=== PATIENT | female | born 1940 | race Caucasian/White ===

== ENCOUNTER → 2017-02-03 | Outpatient (CLI) | payer MEDICARE ==
--- NOTE | 2017-02-03 11:33 | RAD ---
Indication assess for potential right breast abscess. Targeted ultrasound of the right breast was performed. There is slight swelling of the dermis and epidermis at approximately the 9 to 10:00 position of the breast.. A discrete fluid collection, suggesting abscess, is not seen. IMPRESSION: No evidence of deep-seated abscess
== END | disposition home or self-care (01) ==
LOC: US 10:40
PROVIDERS: ATTEND Surgery
DX: N61.1 Abscess of the breast and nipple (principal)
CPT/HCPCS: 76641

== ENCOUNTER 2017-03-28 16:38 | Emergency (ER) | payer MEDICARE, BC ==
[~2017-03-28] VITALS: Ht 165.1 cm; Wt 81.6 kg
[2017-03-28 18:12] LABS: BILIRUBIN,URINE SMALL (NEG); GLUCOSE,URINE 100 mg/dL (NEG); NITRITE,URINE POSITIVE (NEG); PROTEIN,URINE NEGATIVE (NEG-TRACE)
[2017-03-28] MEDS ORDERED: ONDA4TAB10 SL (18:17)
[2017-03-28] MEDS ORDERED: HYDR-2758 PO (18:17)
--- NOTE | 2017-03-28 18:17 | PHYS DOC ---
Past Medical History Past Medical History: Anxiety, Asthma, Diabetes-Type II, High Cholesterol, Hypertension Past Surgical History: Appendectomy, Hysterectomy, Other Additional Past Surgical Histo: D&C, L PACEMAKER, BILAT CATARACT, BACK SX, CARDIAC STENT Alcohol Use: None Drug Use: None Adult General Chief Complaint Chief Complaint: GROIN PAIN HPI HPI 76-year-old female presenting to the emergency department today with left lower quadrant abdominal pain. She describes it as sharp shooting pain that is nonradiating intermittent and is been present for approximately 3 days. She has intermittent constipation but denies diarrhea. She denies fevers chills nausea or vomiting. She denies any other symptoms. She denies polyuria or dysuria. Review of systems is negative for chest pain shortness of breath fevers or chills. All other review of systems is negative unless otherwise noted in history of present illness. ED course: 76-year-old female presenting to the emergency department today with left lower quadrant abdominal pain. IV established and IV fluids administered along with nausea and pain medications. Triage vital signs show the patient to be afebrile with normal heart rate. Pertinent physical exam findings showed a soft mildly tender abdomen in the left lower quadrant without rebound tenderness or guarding. Otherwise the remainder of the examination is unremarkable. Patient is well-appearing alert not in any distress. Blood work sent along with CT of the abdomen pelvis. Blood work shows mild baseline anemia. Urinalysis suggestive of urinary tract infection. Chemistry panel otherwise shows mild creatinine elevation with BUN within normal range. CT abdomen pelvis was unremarkable for acute pathology. I communicated to the patient that she will need a follow-up pelvic ultrasound over the next 3 months that she can get her through her primary care physician otherwise she was discharged home on Macrobid therapy to follow-up with PCP in the next few days. The patient was then discharged home in stable condition to follow up with their primary care physician over the next 2-3 days. They were to return if their symptoms worsened or if they were concerned for any reason. [id number] discharge instructions and return precautions were given. Patient's questions were answered to their satisfaction. Patient is comfortable plan. Review of Systems Review of Systems SEE ABOVE. Current Medications Current Medications Current Medications Medications (Trade) Dose Ordered Sig/Stuart Start Time Stop Time Status Last Admin Dose Admin Hydromorphone HCl (Dilaudid) 0.5 mg PRN Q30MIN PRN 7/28/17 18:15 03/29/17 18:14 03/28/17 19:39 0.5 MG Info (Do NOT chart on this entry -- for MONITORING) 1 each PRN DAILY PRN 03/28/17 20:45 03/30/17 20:44 Iohexol (Omnipaque 240 Mg/ml) 50 ml 1X ONCE 03/28/17 20:45 03/28/17 20:46 DC 03/28/17 20:35 50 ML Ondansetron HCl (Zofran) 4 mg 1X ONCE 03/28/17 18:45 03/28/17 18:46 DC 03/28/17 18:35 4 MG Sodium Chloride 500 ml @ 500 mls/hr 1X ONCE 03/28/17 18:30 03/28/17 19:29 DC 03/28/17 18:35 500 MLS/HR Allergies Allergies Allergies Coded Allergies Type Severity Reaction Last Updated Verified No Known Drug Allergies 03/28/17 No Physical Exam Physical Exam SEE ABOVE Constitutional: Well developed, well nourished, no acute distress, non-toxic appearance. [] HENT: Normocephalic, atraumatic, bilateral external ears normal, oropharynx moist, no oral exudates, nose normal. [] Eyes: PERRLA, EOMI, conjunctiva normal, no discharge. [] Neck: Normal range of motion, no tenderness, supple, no stridor. [] Cardiovascular:Heart rate regular rhythm, no murmur [] Lungs & Thorax: Bilateral breath sounds clear to auscultation [] Abdomen: SEE ABOVE Skin: Warm, dry, no erythema, no rash. [] Back: No tenderness, no CVA tenderness. [] Extremities: No tenderness, no cyanosis, no clubbing, ROM intact, no edema. [] Neurologic: Alert and oriented X 3, normal motor function, normal sensory function, no focal deficits noted. [] Psychologic: Affect normal, judgement normal, mood normal. [] Current Patient Data Vital Signs Vital Signs Date Time Temp Pulse Resp B/P (MAP) Pulse Ox O2 Delivery O2 Flow Rate FiO2 03/28/17 20:16 70 13 123/62 (82) 93 Room Air 03/28/17 17:10 98.3 98.3 Lab Values Laboratory Tests Test 03/28/17 17:15 03/28/17 18:22 Urine Collection Type Unknown Urine Color Whiteside Urine Clarity Clear Urine pH 5.0 Urine Specific [place] 1.020 Urine Protein Negative mg/dL (NEG-TRACE) Urine Glucose (UA) 100 mg/dL (NEG) Urine Ketones (Stick) Negative mg/dL (NEG) Urine Blood Negative (NEG) Urine Nitrite Positive (NEG) Urine Bilirubin Small (NEG) Urine Urobilinogen Dipstick 1.0 mg/dL (0.2 mg/dL) Urine Leukocyte Esterase Small (NEG) Urine RBC 0 /HPF (0-2) Urine WBC 1-4 /HPF (0-4) Urine Squamous Epithelial Cells Mod /LPF Urine Bacteria Moderate /HPF (0-FEW) Urine Mucus Mod /LPF White Blood Count 7.5 x10^3/uL (4.0-11.0) Red Blood Count 3.80 x10^6/uL (3.50-5.40) Hemoglobin 11.3 g/dL (12.0-15.5) L Hematocrit 34.3 % (36.0-47.0) L Mean Corpuscular Volume 90 fL (79-100) Mean Corpuscular Hemoglobin 30 pg (25-35) Mean Corpuscular Hemoglobin Concent 33 g/dL (31-37) Red Cell Distribution Width 13.4 % (11.5-14.5) Platelet Count 164 x10^3/uL (140-400) Neutrophils (%) (Auto) 63 % (31-73) Lymphocytes (%) (Auto) 24 % (24-48) Monocytes (%) (Auto) 8 % (0-9) Eosinophils (%) (Auto) 3 % (0-3) Basophils (%) (Auto) 2 % (0-3) Neutrophils # (Auto) 4.7 x10^3uL (1.8-7.7) Lymphocytes # (Auto) 1.8 x10^3/uL (1.0-4.8) Monocytes # (Auto) 0.6 x10^3/uL (0.0-1.1) Eosinophils # (Auto) 0.2 x10^3/uL (0.0-0.7) Basophils # (Auto) 0.1 x10^3/uL (0.0-0.2) Segmented Neutrophils % 60 % (35-66) Lymphocytes % 26 % (24-48) Atypical Lymphocytes % (Manual) 2 % (0-0) H Monocytes % 12 % (0-10) H Toxic Vacuolation Present Platelet Estimate Adequate (ADEQUATE) Sodium Level 139 mmol/L (136-145) Potassium Level 4.4 mmol/L (3.5-5.1) Chloride Level 103 mmol/L (98-107) Carbon Dioxide Level 27 mmol/L (21-32) Anion Gap 9 (6-14) Blood Urea Nitrogen 15 mg/dL (7-20) Creatinine 1.4 mg/dL (0.6-1.0) H Estimated GFR (Cockcroft-Gault) 36.5 BUN/Creatinine Ratio 11 (6-20) Glucose Level 137 mg/dL (70-99) H Calcium Level 8.7 mg/dL (8.5-10.1) Total Bilirubin 0.4 mg/dL (0.2-1.0) Aspartate Amino Transferase (AST) 19 U/L (15-37) Alanine Aminotransferase (ALT) 26 U/L (14-59) Alkaline Phosphatase 91 U/L (46-116) Total Protein 7.4 g/dL (6.4-8.2) Albumin 3.7 g/dL (3.4-5.0) Albumin/Globulin Ratio 1.0 (1.0-1.7) Lipase 69 U/L (73-393) L Laboratory Tests 03/28/17 18:22 Laboratory Tests 03/28/17 18:22 EKG EKG [] Radiology/Procedures Radiology/Procedures [] Course & Med Decision Making Course & Med Decision Making Pertinent Labs and Imaging studies reviewed. (See chart for details) [] Dragon Disclaimer Dragon Disclaimer This electronic medical record was generated, in whole or in part, using a voice recognition dictation system. Departure Departure Impression: Primary Impression: Abdominal pain, left lower quadrant Additional Impression: Urinary tract infection Disposition: 01 HOME, SELF-CARE Condition: STABLE Referrals: VALENCIA CHRISTOPHER (PCP) Patient Instructions: Abdominal Pain (Nonspecific) Additional Instructions: Thank you for allowing us to participate in your care today. Followup with your primary care physician in 3 days if your symptoms do not improve. Call your Primary Doctor tomorrow and inform them of your visit today. If you do not have a primary care provider you can ask for a list of our primary care providers. Return to the emergency department you have any new or concerning findings. This should be evaluated by the primary care physician and any necessary consulting services for continued management within a few days after discharge. Return to emergency room if you have any new or concerning symptoms including but not limited to fever, chills, nausea, vomiting, intractable pain, any new rashes, chest pain, shortness of air, uncontrolled bleeding, difficulty breathing, and/or vision loss. You may have been prescribed medication that can change in your level of thinking and ability to operate machinery. These medications include hydrocodone and Ativan. Also, Benadryl has been known to do this as well. Be sure to check with your pharmacist and ask if the medications you've prescribed can affect your level of consciousness. I recommend not operating heavy machinery or driving while on medication such as these. Scripts Nitrofurantoin Monohyd/M-Cryst (MACROBID 100 MG CAPSULE) 100 Mg Capsule 1 CAP PO BID, #10 CAP Prov: TYRONE GOINS MD 03/28/17 Ondansetron (ZOFRAN ODT) 4 Mg Tab.rapdis 1 TAB SL PRN Q8HRS Y for NAUSEA, #6 TAB Prov: TYRONE GOINS MD 03/28/17 Hydrocodone Bit/Acetaminophen (HYDROCODONE-APAP 5-325 ) 1 Each Tablet 1 TAB PO PRN Q6HRS Y for PAIN, #15 TAB 0 Refills Be careful as this medication may cause you to be drowsy or tired. Do not drive on this medication. Prov: TYRONE GOINS MD 03/28/17 Problem Qualifiers TYRONE GOINS MD Mar 28, 2017 18:17
[2017-03-28 18:21] LABS: BACTERIA,URINE MODERATE /HPF (0-FEW); RBC,URINE 0 /HPF (0-2); SQUAMOUS EPITHELIAL CELL,UR MOD /LPF
[2017-03-28] MEDS ORDERED: IV NORMAL SALINE 500ML BAG 500 ML IV ONE (18:30)
[2017-03-28 18:33] LABS: BASO # 0.1 x10^3/uL (0.0-0.2); BASO % 2 % (0-3); EOS % 3 % (0-3); HEMATOCRIT 34.3 % (36.0-47.0); HEMOGLOBIN 11.3 g/dL (12.0-15.5); LYMPH # 1.8 x10^3/uL (1.0-4.8); LYMPH % 24 % (24-48); MEAN CORPUSCULAR HEMOGLOBIN 30 pg (25-35); MEAN CORPUSCULAR HGB CONC 33 g/dL (31-37); MEAN CORPUSCULAR VOLUME 90 fL (79-100); MONO % 8 % (0-9); NEUT % 63 % (31-73); PLATELET COUNT 164 x10^3/uL (140-400); RED CELL DISTRIBUTION WIDTH 13.4 % (11.5-14.5); WHITE BLOOD COUNT 7.5 x10^3/uL (4.0-11.0)
[2017-03-28] MEDS: HYDROmorphone 2 MG/ML VIAL IV PRN ×2 (18:35→19:39)
[2017-03-28 18:44] LABS: CALCIUM 8.7 mg/dL (8.5-10.1); CREATININE 1.4 mg/dL (0.6-1.0); GFR 36.5; POTASSIUM 4.4 mmol/L (3.5-5.1)
[2017-03-28] MEDS ORDERED: ONDANSETRON PF 4 MG/2 ML VIAL. IV ONE (18:45)
[2017-03-28 18:50] LABS: ALBUMIN 3.7 g/dL (3.4-5.0); TOTAL BILIRUBIN 0.4 mg/dL (0.2-1.0); TOTAL PROTEIN 7.4 g/dL (6.4-8.2)
[2017-03-28 19:45] LABS: PLT ESTIMATE ADEQUATE (ADEQUATE); TOXIC VACUOLATION PRESENT
[2017-03-28] MEDS ORDERED: IOHEXOL 240 MG/ML 50ML VIAL. PO ONE (20:45)
[2017-03-28] MEDS ORDERED: CONTRAST GIVEN MC PRN (20:45)
--- NOTE | 2017-03-28 20:57 | RAD ---
EXAM: CT ABDOMEN/PELVIS WITHOUT CONTRAST. HISTORY: Left lower quadrant pain. TECHNIQUE: Computed tomography of the abdomen and pelvis was performed without intravenous contrast. COMPARISON: None. FINDINGS: Lung windows through the visualized portions of the bases reveal mild atelectasis. Pacemaker leads and coronary stents are noted. A small hiatal hernia is noted. Bone windows reveal no suspicious lesions. There is grade 1 anterolisthesis at L4-5 facet osteoarthritis. Facet hypertrophy and a posterior disc bulge result in moderate to severe central canal stenosis. There are no inflammatory changes in the left lower quadrant or elsewhere. There are no pathologically enlarged lymph nodes. The uterus is surgically absent. There are small cysts/follicles in the ovaries that measure up to 2.1 cm on the right base. The liver, gallbladder, pancreas, spleen, adrenal glands and kidneys are unremarkable without contrast. IMPRESSION: 1. No cause for acute pain is identified. 2. Small cysts or follicles in the ovaries. These are not clearly physiologic in a patient of this age. Pelvic sonography is follow-up if long-term stability is not already known. 3. Central canal stenosis appears moderate to severe at L4-5. 4. Small hiatal hernia. *One or more of the following individualized dose reduction techniques were utilized for this examination: 1. Automated exposure control. 2. Adjustment of the mA and/or kV according to patient size. 3. Use of iterative reconstruction technique. Electronically signed by: Natasha Garcia MD (03/28/2017 8:53 PM) [facility]
[2017-03-28] MEDS ORDERED: NITR100C62 PO (21:09)
[2017-03-28 21:31] VITALS: BP 125/65
[2017-03-31 07:33] LABS: POTASSIUM ISTAT 4.8 mmol/L (3.5-5.0)
== END 2017-03-28 21:32 | disposition home or self-care (01) ==
LOC: ER 16:38
DX: N39.0 Urinary tract infection, site not specified (principal); R10.32 Left lower quadrant pain; J45.909 Unspecified asthma, uncomplicated; E11.9 Type 2 diabetes mellitus without complications; E78.00 Pure hypercholesterolemia, unspecified; I10 Essential (primary) hypertension; Z90.49 Acquired absence of other specified parts of digestive tract; D64.9 Anemia, unspecified
CPT/HCPCS: 36415; 74176; 80053; 81001; 83690; 85007; 85027; 87086; 96361; 96374; 96375; 96376; 99285; J1170; J2405; J7040; Q9966; 80047

== ENCOUNTER → 2017-05-01 | Outpatient (CLI) | payer MEDICARE, BC ==
[~2017-05-01] MED LIST: HYDR-2758 PO; NITR100C62 PO; ONDA4TAB10 SL
--- NOTE | 2017-05-01 08:50 | RAD ---
Exam performed: Complete abdominal and Pelvic Ultrasound. Indication: Abdominal and pelvic pain Date of Service: 05/01/17. CT abdomen pelvis with contrast from 03/28/17 Technique: Real-time grayscale imaging of the complete abdomen is performed and images are obtained. Transabdominal and Transvaginal scanning of the pelvis was also performed Complete abdominal ultrasound Findings: The liver is normal in size and echogenicity without focal lesions. It measures 15.2 cm in length. There is no intra or extrahepatic biliary ductal dilatation. Common bile duct measures 2.7 mm. The gallbladder is normal. Bilateral kidneys, pain appear normal. The right kidney measures 9.1 x 4.5 x 4.3 cm left kidney measures 9.8 x 3.9 x 4.4 cm. Suboptimal evaluation of the pancreas due to overlying bowel gas. The visualized IVC and aorta appear grossly normal. No free fluid. Impression: Negative complete abdominal ultrasound. End impression Pelvic ultrasound findings: The uterus is surgically absent. Both ovaries are normal. The right ovary measures 3.0 x 2.5 x 1.9 cm , the left ovary measures 3.4 x 2.1 x 1.7 cm. Small bilateral ovarian cysts are seen which measure 2.4 x 1.8 x 1.6 cm on the right and 1.1 x 1.5 x 1.4 cm the left, likely physiological Impression: 1. Status post hysterectomy, otherwise essentially unremarkable exam.
== END | disposition home or self-care (01) ==
LOC: US 06:26
PROVIDERS: ATTEND Family Medicine
DX: N83.202 Unspecified ovarian cyst, left side (principal); N83.201 Unspecified ovarian cyst, right side; Z90.710 Acquired absence of both cervix and uterus
CPT/HCPCS: 76700; 76830; 76856